=== PATIENT | female | born 1975 | race Caucasian/White ===

== ENCOUNTER 2020-09-19 23:56 | Inpatient (IN) | payer MEDICAID, SELFPAY ==
[2020-09-20 00:19] VITALS: BP 135/100; PULSE 76; RESP 16; TEMP 36.4; O2SAT 100; BMI 44.2
--- NOTE | 2020-09-20 00:42 | W.ED.PSYCH ---
HPI - Psych General: Chief Complaint: Psychiatric Symptoms Stated Complaint: SI Time Seen by Provider: 09/20/20 00:02 Source: patient Mode of arrival: ambulatory Limitations: no limitations History of Present Illness: HPI Narrative: 44-year-old female states that she has been having increasing depression. She and her boyfriend left her kids a month speak to her and she is now having suicidal thoughts. She states she has no specific plan but she is feeling very depressed and suicidal and voluntarily wants to get inpatient help. She denies any worsening improving factors. Associated symptoms: Reports depression and suicidal ideation Review of Systems Const: Denies: fever(s), chills, body aches or change in appetite Eyes: Denies: blurry vision or eye discomfort ENMT: Denies: throat pain or dental pain Card: Denies: chest pain Resp: Denies: dyspnea GI: Denies: abdominal pain, nausea, vomiting or diarrhea : Denies: dysuria Musc: Denies: neck pain or back pain Skin/Breast: Denies: rash Neuro: Denies: headache(s) Psych: Reports: depression and suicidal ideation Salomon/Lymph: Denies: easy bruising All/Imm: Denies: urticaria REPLACED BY [facility] Female Reproductive History: Date of last menstrual period: 09/20/20 Physical Exam Const: COMMON NORMALS: no acute distress, patient oriented x3 and healthy appearing HENMT: COMMON NORMALS: normocephalic and atraumatic HEAD & SCALP: normocephalic and atraumatic Eye: COMMON NORMALS: Equal, round and reactive pupils present and EOMs intact bilaterally PUPIL: Yes Equal, round and reactive pupils present Neck/C-Spine: COMMON NORMALS: full ROM and supple Chest: COMMONS NORMALS: normal inspection of the chest and normal palpation of entire chest wall Resp: COMMON NORMALS: normal respiratory effort, No retractions, No use of accessory muscles and clear to auscultation bilaterally AUSCULTATION: clear to auscultation bilaterally Cardio: COMMON NORMALS: regular rate, regular rhythm and No murmurs present (Cardio) RATE: regular rate RHYTHM: regular rhythm GI: COMMON NORMALS: Normal to inspection, nondistended, normoactive bowel sounds present, Soft to palpation, non-tender and no masses PALPATION: Yes Soft to palpation Extremity: COMMON NORMALS: normal to inspection and full ROM Neuro: COMMON NORMALS: patient oriented x3, moves all extremities and no focal motor deficits Psych: COMMON NORMALS: mental status grossly normal, Normal thought process present and cooperative THOUGHT PROCESS: Normal thought process present Skin: COMMON NORMALS: no rashes or lesions noted and no wounds GENERAL SKIN EXAM: no rashes or lesions noted Course Vital Signs: Vital signs: Vital Signs Temperature 97.6 F 09/20/20 00:19 Pulse Rate 76 09/20/20 00:19 Respiratory Rate 16 09/20/20 00:19 Blood Pressure 135/100 09/20/20 00:19 Pulse Oximetry 100 09/20/20 00:19 MDM - Psych MDM Narrative: Medical decision making narrative: Patient presents for suicidal ideation with no specific plan. Patient is medically cleared and she is voluntarily going to be admitted to the psychiatric unit. She has been stable while here and I spoke to Dr. Gerardo and will admit. Lab Data: Labs: Lab Results 09/20/20 09/20/20 Range/Units 00:49 00:49 WBC 11.4 H (4.0-10.0) 10^3/ uL RBC 3.45 L (4.1-5.3) 10^6/u L Hgb 8.4 L (11.5-15.3) g/dL Hct 28.5 L (37.0-47.0) % MCV 82.6 (81-99) fL MCH 24.3 L (28.0-34.0) pg MCHC 29.5 L (30.0-36.0) g/dL RDW 19.7 H (12.1-15.1) % Plt Count 469 H (130-400) 10^3/c mm MPV 9.9 (7.4-10.4) fL Neut % (Auto) 58.4 % Lymph % (Auto) 29.3 % [place] % (Auto) 7.8 % Eos % (Auto) 3.3 % Baso % (Auto) 0.4 % Neut # (Auto) 6.64 (1.8-7.7) 10^3/u L Lymph # (Auto) 3.3 (0.8-4.8) 10^3/u L [place] # (Auto) 0.9 (0.2-0.9) 10^3/u L Eos # (Auto) 0.4 (0.0-0.8) 10^3/u L Baso # (Auto) 0.1 (0.0-0.1) 10^3/u L Nucleated RBC % (a uto) 0 % Nucleated RBCs # 0.0 /100WBC Sodium 138 (136-145) mmol/L Potassium 4.3 (3.5-5.1) mmol/L Chloride 103 (98-107) mmol/L Carbon Dioxide 25 (22-29) mmol/L Anion Gap 14.3 (5-19) BUN 17 (6-20) mg/dL Creatinine 0.8 (0.5-0.9) mg/dL GFR Calculation 77.2 L (90-130) mL/min Glucose 90 (65-115) mg/dL Calculated Osmolal ity 287 (285-295) mOsm/k g Calcium 8.3 L (8.5-10.5) mg/dL Total Bilirubin 0.2 (0.15-1.2) mg/dL AST 10 (0-32) U/L ALT 6 (0-33) U/L Alkaline Phosphata se 144 H (35-105) IU/L Total Protein 7.0 (6.6-8.7) g/dL Albumin 3.6 (3.5-5.2) g/dL Globulin 3.4 (1.3-4.6) g/dL Salicylates < 0.3 L (3-10) mg/dL Acetaminophen < 5.0 L (10-30) ug/mL Ethyl Alcohol 10 (0-10) mg/dL Discharge Plan Discharge Patient Disposition: Admitted As Inpatient Admit Provider: Rao Gerardo Clinical Impression: Suicidal ideation Condition: Stable Coding Level of Care Code ED Aircraft Detail Draftsperson for g Fwd Exam Comprehensive
[2020-09-20 00:53] LABS: Basophils # 0.1 10^3/uL (0.0-0.1); Basophils % 0.4 %; Eosinophils # 0.4 10^3/uL (0.0-0.8); Eosinophils % 3.3 %; Hematocrit 28.5 % (37.0-47.0); Hemoglobin 8.4 g/dL (11.5-15.3); Lymphocytes # 3.3 10^3/uL (0.8-4.8); Lymphocytes % 29.3 %; Mean Corpuscular HGB Conc 29.5 g/dL (30.0-36.0); Mean Corpuscular Hemoglobin 24.3 pg (28.0-34.0); Mean Corpuscular Volume 82.6 fL (81-99); Mean Platelet Volume 9.9 fL (7.4-10.4); Monocytes # 0.9 10^3/uL (0.2-0.9); Monocytes % 7.8 %; Neutrophils # 6.64 10^3/uL (1.8-7.7); Neutrophils % 58.4 %; Nucleated Red Blood Cells % 0 %; Platelet Count 469 10^3/cmm (130-400); Red Blood Count 3.45 10^6/uL (4.1-5.3); Red Cell Distribution Width 19.7 % (12.1-15.1); White Blood Count 11.4 10^3/uL (4.0-10.0)
[2020-09-20 01:11] LABS: Alanine Aminotransferase 6 U/L (0-33); Albumin Level 3.6 g/dL (3.5-5.2); Alkaline Phosphatase 144 IU/L (35-105); Anion Gap 14.3 (5-19); Aspartate Amino Transferase 10 U/L (0-32); Blood Urea Nitrogen 17 mg/dL (6-20); Calcium 8.3 mg/dL (8.5-10.5); Carbon Dioxide 25 mmol/L (22-29); Chloride 103 mmol/L (98-107); Creatinine Clr Calc Pharmacy 106.5322; Globulin 3.4 g/dL (1.3-4.6); Glomerular Filtration Rate 77.2 mL/min (90-130); Glucose 90 mg/dL (65-115); Osmolality Calculated 287 mOsm/kg (285-295); Potassium 4.3 mmol/L (3.5-5.1); Sodium 138 mmol/L (136-145); Total Bilirubin 0.2 mg/dL (0.15-1.2)
[2020-09-20 01:16] LABS: Acetaminophen < 5.0 ug/mL (10-30); Alcohol Level 10 mg/dL (0-10); Salicylate < 0.3 mg/dL (3-10)
[2020-09-20 01:22] VITALS: BP 156/112; PULSE 78; RESP 16; TEMP 37.1; O2SAT 98
[2020-09-20 01:25] LABS: Amphetamines Screen Urine Positive (Negative); Barbiturates Screen Urine Negative (Negative); Benzodiazepines Screen Urine Negative (Negative); Cocaine Screen Urine Negative (Negative); Opiate Screen Urine Negative (Negative); PCP Screen Urine Negative (Negative); THC Screen Urine Negative (Negative)
--- NOTE | 2020-09-20 01:26 | PC.NURSE ---
PTS PURSE, MEDS AND TRASH BAG OF BELONGINGS PLACED IN LOCKER AND SENT WITH PT TO NPU
[2020-09-20 01:45] VITALS: BP 142/87; PULSE 78; RESP 16; O2SAT 97
[2020-09-20 06:00] VITALS: BP 148/98; PULSE 75; RESP 16; TEMP 37.1; O2SAT 99
[2020-09-20] MEDS: levothyroxine 50 mcg Tablet PO (06:24)
[2020-09-20] MEDS: pantoprazole DR 40 mg Tablet PO (09:51)
[2020-09-20] MEDS: ferrous sulfate EC 325 mg Tablet PO (09:51)
[2020-09-20] MEDS: lisinopril 20 mg Tablet PO (09:52)
[2020-09-20] MEDS: amlodipine 5 mg Tablet PO (09:52)
[2020-09-20] MEDS: fluticasone nasal spray 16gm Btl 2 SPRAY INTRANASAL (09:56)
[2020-09-20] MEDS: triamcinolone 0.1% cream 15 gm 1 APPLIC TOPICAL (09:57)
--- NOTE | 2020-09-20 11:54 | PM.NHP ---
Providers/Chief Complaint Admitting Physician: Rao Gerardo MD Chief Complaint: SI HPI NPU History of Present Illness Maureen Clifton is a 44 year old female with unclear past psychiatric history although reports prior mental health treatment and states that she has been off of medication for several weeks presented to the emergency department with acute stressor of her boyfriend kicking her out and her having worsening depressive symptoms and suicidal ideation. Patient continues to report ongoing low mood, decreased energy and interest in her usual activities, difficulty with appetite and sleep secondary to depressive symptoms with passive suicidal ideation with no active intent or plan. Of note, patient's urine drug screen positive for methamphetamine and she states that she had recently used within the past 3 days but states that she is only used this substance on 3 prior occasions. She denies any other substance use and denies any alcohol use. Patient had previous contact with mental health in June secondary to unstable living arrangement and was not reporting any acute psychiatric symptoms at that time. Patient reports prior diagnosis of bipolar disorder although is unable to cite any past hypomanic or manic episodes. Patient does report ongoing anxiety symptoms to include excessive worry and difficulty controlling her worrying as well as occasional panic symptoms. She denies any past or recent psychotic symptoms. Patient currently reports being homeless and states that she is unable to support herself and states that her brother typically helps her financially. Review of Systems General: Reports: 10 or more systems reviewed and unremarkable except in HPI and below Meds NPU Home Medications Medication Instructions Recorded Confirmed Last Taken Type amlodipine-benazepril 5 - 20 cap PO DAILY 09/20/20 09/20/20 09/10/20 09:00 History ferrous sulfate 325 mg PO DAILY 09/20/20 09/20/20 09/04/20 09:00 History fluticasone propionate 2 spray INTRANASAL DAILY 09/20/20 09/20/20 09/19/20 09:00 History hydroxyzine pamoate 25 mg PO BEDTIME PRN MDD 50mg 09/20/20 09/20/20 09/10/20 21:00 History ibuprofen [Motrin] 800 mg PO Q6H PRN 09/20/20 09/20/20 09/10/20 09:00 History levothyroxine 50 mcg PO DAILY 09/20/20 09/20/20 09/10/20 06:00 History omeprazole 20 mg PO DAILY 07/04/1209/20/20 09/19/20 09:00 History ropinirole 2 mg PO BEDTIME 09/20/20 09/20/20 09/10/20 History triamcinolone acetonide 1 applic TOPICAL BID 09/20/20 09/20/20 Unknown History Allergies Allergy/AdvReac Type Severity Reaction Status Date / Time Penicillins Allergy Unknown Verified 09/20/20 00:23 [facility] NPU Other Psychiatric History: Other Psychiatric History: Reports previous psychiatric hospitalization several years ago States that her family practice physician provides her mental health medications although she is currently not taking any medications Reports past overdose attempt at age 17 Mental Status Exam MSE Comments: Obese, poorly groomed, lying in bed, poor to fair eye contact Psychomotor activity is decreased, no agitation Speech is normal rate, low volume, spontaneous, fair articulation, not pressured I feel tired, constricted affect, not labile Tired but alert, oriented to person, place, time, situation Memory and concentration is fair secondary to poor effort per interview Intellectual functioning appears to be below average to average at best based on vocabulary, interview Thought process, linear but brief, no flight of ideas, no looseness of associations Thought content, no delusions, no hallucinations, currently with passive suicidal thoughts with no active intent or plan, no homicidal ideation Insight and judgment appear to be fair Vitals/I&O/Wt Last Vital Signs Temp 98.8 F 09/20/20 06:00 Pulse 75 09/20/20 06:00 Resp 16 09/20/20 06:00 BP 148/98 09/20/20 06:00 Pulse Ox 99 09/20/20 06:00 09/19/20 09/20/20 09/20/20 22:59 06:59 14:59 Intake Total 0 / 0 Balance 0 / 0 Weight last 48 hrs Weight 113.398 kg Data NPU : 09/20/20 00:49 09/20/20 00:49 A&P Assessment and plan (1) Suicidal ideation: Status: Acute (2) Depressive disorder: Status: Acute (3) Anxiety disorder: Status: Acute (4) Methamphetamine abuse: Status: Acute Additional A&P Information Patient presenting with methamphetamine intoxication, suicidal ideation although currently reporting passive suicidal ideation with ongoing depressive and anxiety symptoms reporting that she has been off medication for several weeks and is homeless. VOLUNTARY ADMIT to inpatient psychiatry START citalopram 10 mg daily targeting depressive and anxiety symptoms Encouraged patient to participate in unit activities to include group sessions, unit milieu Coordinate with social insurance adviser for post discharge mental health care follow-up Involuntary Hold Information 96 Hour Hold: 96 Hour Involuntary Admission: No Attestations NPU Medical Necessity Statement*: Psychiatric hospitalization indicated for medication stabilization, coordination for safe discharge Anticipate hospital stay to exceed 2 midnights Time Spent in Patient Care: Greater than 35 minutes (>than 50% of time spent in counselling and/or direct pt care on unit). Coding Level of Care Code Acute Leverman for g Fwd Diagnoses Suicidal ideation R45.851 Depressive disorder F32.9 Anxiety disorder F41.9 Methamphetamine abuse F15.10
[2020-09-20] MEDS: citalopram 20 mg Tablet PO (12:50)
[2020-09-20 14:00] VITALS: BP 140/84; PULSE 75; RESP 18; TEMP 36.1; O2SAT 94
--- NOTE | 2020-09-20 15:51 | PC.NURSE ---
pt refused meds at med pass, pt was being lazy and didn't want to be bothered with rolling over for meds at that time. Approached the room in 15 min's and was able to administer meds at that time.
[2020-09-20] MEDS: ropinirole 1 mg Tablet 2 MG PO (20:20)
[2020-09-20 22:00] VITALS: BP 154/105; PULSE 82; RESP 17; TEMP 37.1; O2SAT 97
--- NOTE | 2020-09-21 03:24 | PC.NURSE ---
PM Assessment pt denies si/hi, denies ah/vh, denies pain, pt was laying in her bed, lights out, eyes were teary. Pt has self-isolated, she is not in a pleasant mood, she does not want to talk to staff. She is not rude, she is not open to interaction. Pt has slept most of the evening.
[2020-09-21] MEDS: ibuprofen 800 mg tablet PO (04:56)
[2020-09-21] MEDS: hyDROXYzine 25 mg Capsule 50 MG PO ×2 (04:56→20:17)
[2020-09-21 06:00] VITALS: RESP 17
--- NOTE | 2020-09-21 06:05 | PC.NURSE ---
Patient refused vitals. respirations were taken.
--- NOTE | 2020-09-21 06:39 | PC.NURSE ---
refused levothyroxine this morning
[2020-09-21] MEDS: fluticasone nasal spray 16gm Btl 2 SPRAY INTRANASAL (09:41)
[2020-09-21] MEDS: citalopram 20 mg Tablet PO (09:41)
[2020-09-21] MEDS: pantoprazole DR 40 mg Tablet PO (09:42)
[2020-09-21] MEDS: lisinopril 20 mg Tablet PO (09:42)
[2020-09-21] MEDS: amlodipine 5 mg Tablet PO (09:42)
[2020-09-21] MEDS: ferrous sulfate EC 325 mg Tablet PO (09:42)
--- NOTE | 2020-09-21 12:32 | P.PN_ITS ---
Subjective NPU Subjective: Interval history: Continues to report some depressive symptoms mostly lying in bed today Reports intermittent anxiety symptoms about ongoing stressors Reports that her appetite is been fair States that she has mostly been sleeping and denies any sleep disturbances at ni ght Reports being compliant with medication and denies any medication side effects Denies any interval suicidal ideation Mental Status Exam MSE Comments: Lying in bed, wearing hospital scrubs, poor eye contact, lying on her side facing away from the interviewer Psychomotor activity is decreased, no agitation Speech is low volume, normal rate, spontaneous, fair articulation, not pressured I feel depressed, constricted affect, not labile Alert, oriented to person, place, time, situation Memory and concentration is fair secondary to poor effort per interview Thought process, linear but brief, no flight of ideas, no looseness of associations Thought content, no delusions, no hallucinations, currently with passive suicidal thoughts with no active intent or plan, no homicidal ideation Insight and judgment appear to be fair Vitals/I&O/Wt Last Vital Signs Temp 98.8 F 09/20/20 22:00 Pulse 82 09/20/20 22:00 Resp 17 09/21/20 06:00 BP 154/105 09/20/20 22:00 Pulse Ox 97 09/20/20 22:00 Weight last 48 hrs Weight 113.398 kg Data NPU : 09/20/20 00:49 09/20/20 00:49 A&P Assessment and plan (1) Suicidal ideation: Status: Acute (2) Depressive disorder: Status: Acute (3) Anxiety disorder: Status: Acute (4) Methamphetamine abuse: Status: Acute Additional A&P Information Ongoing depressive and anxiety symptoms, tolerating medication CONTINUE current medication, continue to monitor Involuntary Hold Information 96 Hour Hold: 96 Hour Involuntary Admission: No Attestations NPU Medical Necessity Statement*: Continues to require psychiatric hospitalization for medication stabilization Coding Level of Care Code Acute Wire Preparation Machine Tender for [facility] Fwd Diagnoses Suicidal ideation R45.851 Depressive disorder F32.9 Anxiety disorder F41.9 Methamphetamine abuse F15.10
[2020-09-21 13:45] VITALS: BP 137/90; PULSE 75; RESP 18; TEMP 36.2; O2SAT 100
[2020-09-21] MEDS: fixodent 39 gm Tube 1 APPLIC DENTAL (16:48)
[2020-09-21 19:54] VITALS: BP 164/84; PULSE 76; RESP 16; TEMP 36.8; O2SAT 97
[2020-09-21] MEDS: ropinirole 1 mg Tablet 2 MG PO (20:16)
[2020-09-22 06:00] VITALS: BP 157/89; PULSE 74; RESP 16; TEMP 36.4; O2SAT 94
[2020-09-22] MEDS: amlodipine 5 mg Tablet PO (08:33)
[2020-09-22] MEDS: ferrous sulfate EC 325 mg Tablet PO (08:33)
[2020-09-22] MEDS: pantoprazole DR 40 mg Tablet PO (08:33)
[2020-09-22] MEDS: citalopram 20 mg Tablet PO (08:34)
[2020-09-22] MEDS: lisinopril 20 mg Tablet PO (08:34)
--- NOTE | 2020-09-22 10:24 | PM.NPN ---
Subjective NPU Subjective: Interval history: Reports feeling much better today, denies any interval mood symptoms, denies any depressed symptoms, denies any suicidal ideation Patient states that she plans on going to [place] with her brother once she leaves the hospital Reports being compliant with medication and denies any medication side effects Reports that her appetite is improved and she has been getting up for meals Reports sleeping well Mental Status Exam MSE Comments: Initially lying but eventually sits up for interview, polite, interactive, good eye contact, disheveled, wearing hospital scrubs Psychomotor activity is neither increased nor decreased, no agitation Speech is normal volume, normal rate, spontaneous, clear articulation, not pressured I feel better, full range of affect, not labile Alert, oriented to person, place, time, situation Memory and concentration appears to be intact per interview Thought process, linear, no flight of ideas, no looseness of associations Thought content, no delusions, no hallucinations, no suicidal or homicidal ideation Insight and judgment appear to be fair Vitals/I&O/Wt Last Vital Signs Temp 97.5 F L 09/22/20 06:00 Pulse 74 09/22/20 06:00 Resp 16 09/22/20 06:00 BP 157/89 09/22/20 06:00 Pulse Ox 94 09/22/20 06:00 Data NPU : 09/20/20 00:49 09/20/20 00:49 A&P Assessment and plan (1) Suicidal ideation: Status: Acute (2) Depressive disorder: Status: Acute (3) Anxiety disorder: Status: Acute (4) Methamphetamine abuse: Status: Acute Additional A&P Information Reports significant improvement, tolerating medication, increased interaction CONTINUE current medication, continue to monitor Involuntary Hold Information 96 Hour Hold: 96 Hour Involuntary Admission: No Attestations NPU Medical Necessity Statement*: Continues to require psychiatric hospitalization for medication stabilization, coordination for safe discharge Coding Level of Care Code Acute Pipe And Tank Fabricator for g Fwd Diagnoses Suicidal ideation R45.851 Depressive disorder F32.9 Anxiety disorder F41.9 Methamphetamine abuse F15.10
[2020-09-22] MEDS: nicotine 21 mg Patch 1 PATCH TRANSDERMA (11:58)
[2020-09-22 13:47] VITALS: BP 159/89; PULSE 80; RESP 15; TEMP 36.7; O2SAT 97
[2020-09-22] MEDS: ropinirole 1 mg Tablet 2 MG PO (20:36)
[2020-09-22] MEDS: triamcinolone 0.1% cream 15 gm 1 APPLIC TOPICAL (20:36)
--- NOTE | 2020-09-22 21:00 | PC.NURSE ---
Nicotine Patch removed
[2020-09-22] MEDS: hyDROXYzine 25 mg Capsule 50 MG PO (21:39)
[2020-09-22 22:00] VITALS: BP 142/79; PULSE 71; RESP 16; TEMP 36.5; O2SAT 97
--- NOTE | 2020-09-22 22:40 | PC.NURSE ---
Misleading info given to physician and staff. Pt wanted to leave the unit and told nursing staff that she had a friend Marcus that lived here in [place] that would be willing to come and get her tonight. . Physician notified of pt request. Pt called several people last night, looking for a place to stay. She had informed staff that her brother in [place] was coming to see her and take her back with him to live and that he had been providing money to her to help her while she was living her. This evening Nursing staff received a call from the patients daughter, Daiana, . She informed the nursing staff that this patient does NOT have a brother at all. She said the pt's sister, Lavonne Mccormick, lives in a trailer here in [place]. She went on to say, she would have let her mother stay in her home if she was clean from the street drugs she is using. Digna said she has a small child at home with second child on the way. I can not have my mother using drugs in my home with my children. Digna said, this is another man she has never even met in person, that she met online, and she is going to keep on until she is killed.
--- NOTE | 2020-09-23 01:11 | PC.NURSE ---
The patient was given Vistaril 50 mg po for complaint of anxiety at 2138. Currently appears to be sleeping.
[2020-09-23 06:00] VITALS: BP 102/68; PULSE 97; RESP 18; TEMP 37.4; O2SAT 97; BMI 44.2
[2020-09-23] MEDS: ibuprofen 800 mg tablet PO (06:29)
[2020-09-23] MEDS: levothyroxine 50 mcg Tablet PO (06:30)
[2020-09-23] MEDS: ferrous sulfate EC 325 mg Tablet PO (08:01)
[2020-09-23] MEDS: amlodipine 5 mg Tablet PO (08:01)
[2020-09-23] MEDS: pantoprazole DR 40 mg Tablet PO (08:01)
[2020-09-23] MEDS: citalopram 20 mg Tablet PO (08:01)
[2020-09-23] MEDS: lisinopril 20 mg Tablet PO (08:01)
--- NOTE | 2020-09-23 11:16 | P.DS_ITS ---
Diagnoses at Discharge Discharge Diagnosis (1) Suicidal ideation: Status: Acute (2) Depressive disorder: Status: Acute (3) Anxiety disorder: Status: Acute (4) Methamphetamine abuse: Status: Acute Reason for Visit Reason for Visit: SI Hospital Course Hospital Course 44 year old female with unclear past psychiatric history although reports prior mental health treatment and states that she has been off of medication for several weeks presented to the emergency department with acute stressor of her boyfriend kicking her out and her having worsening depressive symptoms and suicidal ideation. Patient was reporting ongoing low mood, decreased energy and interest in her usual activities, difficulty with appetite and sleep secondary to depressive symptoms with passive suicidal ideation with no active intent or plan at the time of initial evaluation. Her drug screen was positive for methamphetamine and she stated that she had recently used within the past 3 days but states that she is only used this substance on 3 prior occasions. She denies any other substance use and denies any alcohol use. Patient was started on citalopram 10 mg which she tolerated well with no reports of any medication side effects and some improvement of her depressive and anxiety symptoms. Patient participate in unit milieu but mostly stayed in her room with no reports of behavioral disturbances but had become somewhat angry when she realized that she was going to have to present a plan for where she was going to discharge. She subsequently calm down after verbal redirection and was able to provide a plan for her safe discharge. Patient was not suicidal and did not endorse any psychiatric symptoms at the time of discharge and did not appear to pose an imminent threat of harm to self or others. Low to moderate risk of harm to self given no current suicidal ideation and no current endorsement of any psychiatric symptoms although her risk will continue be elevated if she continues to abuse substances and alcohol leading to disinhibited, unexpected, impulsive behavior. Risk mitigation included psychiatric hospitalization, medication stabilization, recommendation to abstain from the use of substances and alcohol as well as the need for post discharge substance counseling/treatment in addition to medication management mental health follow-up. She was able to communicate her understanding of the need to abstain from the use of substances and alcohol as well as the need for compliance with her medication, medication management and substance counseling/treatment post discharge in order to further mitigate her risk of harm to self and others. Involuntary Hold Information 96 Hour Hold: 96 Hour Involuntary Admission: No Mental Status Exam MSE Comments: Sitting up on her bed, calm, cooperative, tired appearing, good eye contact, disheveled, wearing hospital scrubs Psychomotor activity is neither increased nor decreased, no agitation Speech is normal volume, normal rate, spontaneous, clear articulation, not pressured I feel okay, full range of affect, not labile Alert, oriented to person, place, time, situation Memory and concentration appears to be intact per interview Thought process, linear, no flight of ideas, no looseness of associations Thought content, no delusions, no hallucinations, no suicidal or homicidal ideation Insight and judgment appear to be fair Discharge Data Vitals: Last Vital Signs Temp 99.3 F 09/23/20 06:00 Pulse 97 09/23/20 06:00 Resp 18 09/23/20 06:00 BP 102/68 09/23/20 06:00 Pulse Ox 97 09/23/20 06:00 Discharge Plan Discharge Patient Disposition: Home Condition: Stable Prescriptions: New citalopram 20 mg Tablet 20 mg PO DAILY Qty: 30 RF: 0 Continued amlodipine-benazepril 5-20 mg capsule 5 - 20 cap PO DAILY RF: 0 Motrin 800 mg Tablet 800 mg PO Q6H PRN (Reason: Pain (Scale Score 4-6)) RF: 0 triamcinolone acetonide 0.1 % cream 1 applic TOPICAL BID RF: 0 levothyroxine 50 mcg tablet 50 mcg PO DAILY RF: 0 ropinirole 2 mg tablet 2 mg PO BEDTIME RF: 0 ferrous sulfate 325 mg (65 mg iron) tablet 325 mg PO DAILY RF: 0 omeprazole 20 mg capsule,delayed release(DR/EC) 20 mg PO DAILY RF: 0 fluticasone propionate 50 mcg/actuation spray,suspension 2 spray INTRANASAL DAILY RF: 0 hydroxyzine pamoate 25 mg capsule 25 mg PO BEDTIME MDD 50mg PRN (Reason: Insomnia) RF: 0 Discharge Orders: Discharge Order (Routine); Ordered 09/23/20 Ordered By: Maci Preston Discharge Diet: Regular Discharge Activity: Resume usual activity Patient Instructions: Opioid Safety Discharge Attestations NPU Time Spent in Discharge Care*: greater than 30 min Status at Discharge: Cognitive status at discharge: cognitively intact , Behavioral status at discharge: cooperative , Functional status at discharge: independent ambulation Overall status at discharge: patient is back to baseline Coding Level of Care Code Acute Chg FW DC note Diagnoses Suicidal ideation R45.851 Depressive disorder F32.9 Anxiety disorder F41.9 Methamphetamine abuse F15.10
[2020-09-23 11:22] VITALS: BP 102/68; PULSE 97; RESP 18; TEMP 37.4; O2SAT 97
== END 2020-09-23 11:26 | disposition home or self-care (01) | DRG 881 ==
LOC: ER 09-20 00:08 → NP 09-20 01:22
PROVIDERS: Admitting Provider Psychiatry & Neurology Psychiatry; Emergency Provider Emergency Medicine; Visit Provider Psychiatry & Neurology Psychiatry
DX: F32.9 Major depressive disorder, single episode, unspecified (principal); R45.851 Suicidal ideations; Z68.41 Body mass index [BMI] 40.0-44.9, adult; Z91.14 Patient's other noncompliance with medication regimen; E66.9 Obesity, unspecified; F41.9 Anxiety disorder, unspecified; F15.129 Other stimulant abuse with intoxication, unspecified
CPT/HCPCS: 80053; 80306; 80307; 85025; 99285

== ENCOUNTER 2020-10-27 13:19 | Emergency (ER) | payer MEDICAID, SELFPAY ==
[2020-10-27 13:30] VITALS: BP 125/82; PULSE 72; RESP 16; TEMP 36.6; O2SAT 100; BMI 44.2
[2020-10-27 13:45] VITALS: BP 128/62; PULSE 67; RESP 16; TEMP 36.9; O2SAT 98
--- NOTE | 2020-10-27 13:45 | XRR_ITS ---
PROCEDURE INFORMATION: Exam: XR Chest Exam date and time: 10/27/2020 1:45 PM Age: 44 years old Clinical indication: Pain; Chest pressure and left-sided; Additional info: Chest pain TECHNIQUE: Imaging protocol: XR of the chest. Views: 1 view. COMPARISON: No relevant prior studies available. FINDINGS: Lungs: Unremarkable. No consolidation. Pleural spaces: Unremarkable. No pleural effusion. No pneumothorax. Heart/Mediastinum: Unremarkable. No cardiomegaly. Bones/joints: Unremarkable. XR/XR chest 1V portable [id number] IMPRESSION: No acute findings.
--- NOTE | 2020-10-27 13:45 | ECG_ITS ---
[facility] Test Date: 2020-10-27 Pat Name: Maureen Clifton Department: Room: Gender: Female Implementation Services Analyst: : 1975 Requested By: Cash Meyers Order Number: [id number] Pako MD: Alex Dozier M.D. Measurements Intervals [place] Rate: 69 P: 27 [place]: 170 QRS: 1 QRSD: 93 T: 70 QT: 414 QTc: 446 Interpretive Statements SINUS RHYTHM NONSPECIFIC T-WAVE ABNORMALITY No previous ECG available for comparison Electronically Signed On 10-28-2020 12:18:20 CDT by Alex Dozier M.D. [email or web address] ([email or web address] by [id number] [email or web address]
--- NOTE | 2020-10-27 13:55 | ED_ITS ---
HPI - Chest Pain General: Chief Complaint: Chest Pain Stated Complaint: L. SIDE CHEST & L. HAND NUMBNESS Time Seen by Provider: 10/27/20 13:42 History of Present Illness: HPI narrative: 44-year-old female presents to the emergency room via law enforcement from a local [facility]. She is stating she has had chest pain since earlier this morning. She also states she has a history of TX with a previous stent placed somewhere in the range of 4 to 6 years ago while she left someone [place]. She is on antihypertensive but no other medications to getting a history of coronary artery disease. The only medication she is on is amlodipine Benzapril she is not on any platelet inhibitors aspirin or statin. She denies being diabetic she does smoke MD complaint: chest pain Pertinent past history: prior TX (per pt report she had a stent place 4 yrs ago in [place]) Onset (ago): hour(s) Timing of current episode: constant and still present Onset: during rest Pain location: left chest Pain radiation: none Severity: mild Quality: tightness Relieving factors: nothing Exacerbating factors: nothing Associated symptoms: Reports diaphoresis and dyspnea; Deny abdominal pain, fever(s), leg edema, nausea, palpitations, sense of impending doom, syncope or vomiting Treatment prior to arrival: none Review of Systems Const: Reports: diaphoresis; Denies: fever(s) Card: Denies: palpitations or syncope Resp: Reports: dyspnea GI: Denies: abdominal pain, nausea or vomiting [facility] ED PFSH: Medical History Psychiatric care Female Reproductive History: Date of last menstrual period: 09/20/20 Physical Exam Const: COMMON NORMALS: no acute distress GENERAL APPEARANCE: cooperative and comfortable ORIENTATION/CONSCIOUSNESS: Yes awake, Yes oriented to person, Yes oriented to place and Yes oriented to time HENMT: COMMON NORMALS: normocephalic, atraumatic and hearing grossly normal bilaterally HEAD & SCALP: normocephalic and atraumatic Neck/C-Spine: COMMON NORMALS: no JVD Resp: COMMON NORMALS: normal respiratory effort, No retractions, No use of accessory muscles and clear to auscultation bilaterally AUSCULTATION: clear to auscultation bilaterally Cardio: COMMON NORMALS: no JVD, regular rate, regular rhythm and No murmurs present (Cardio) RATE: regular rate RHYTHM: regular rhythm GI: COMMON NORMALS: Soft to palpation and No hepatosplenomegaly present AUSCULTATION: Yes normoactive bowel sounds PALPATION: Yes Soft to palpation, No Tenderness to palpation present (GI), No Guarding due to palpation present (GI) and Yes No hepatosplenomegaly present Extremity: COMMON NORMALS: normal to inspection, capillary refill normal, no clubbing, cyanosis or edema, no calf tenderness and no pedal edema Neuro: SENSORIUM/ORIENTATION: Yes oriented to person, Yes oriented to place and Yes oriented to time Skin: COMMON NORMALS: no rashes or lesions noted GENERAL SKIN EXAM: no rashes or lesions noted Course Vital Signs: Vital signs: Vital Signs Temperature 98 F 10/27/20 13:30 Pulse Rate 72 10/27/20 13:30 Respiratory Rate 16 10/27/20 13:30 Blood Pressure 125/82 10/27/20 13:30 Pulse Oximetry 100 10/27/20 13:30 MDM - Chest Pain MDM Narrative: Medical decision making narrative: Reviewed labs and imaging and EKGs on the chart. Troponin negative. Discharged in the custody of law enforcement. Follow-up with primary care. Return if is worsening problems. Lab Data: Labs: Lab Results 10/27/20 10/27/20 10/27/20 Range/Units 14:20 14:20 14:20 WBC 8.4 (4.0-10.0) 10^3/ uL RBC 3.88 L (4.1-5.3) 10^6/u L Hgb 9.1 L (11.5-15.3) g/dL Hct 31.5 L (37.0-47.0) % MCV 81.2 (81-99) fL MCH 23.5 L (28.0-34.0) pg MCHC 28.9 L (30.0-36.0) g/dL RDW 17.5 H (12.1-15.1) % Plt Count 406 H (130-400) 10^3/c mm MPV 11.0 H (7.4-10.4) fL Neut % (Auto) 64.7 % Lymph % (Auto) 23.9 % Camas % (Auto) 9.2 % Eos % (Auto) 1.6 % Baso % (Auto) 0.4 % Neut # (Auto) 5.42 (1.8-7.7) 10^3/u L Lymph # (Auto) 2.0 (0.8-4.8) 10^3/u L Camas # (Auto) 0.8 (0.2-0.9) 10^3/u L Eos # (Auto) 0.1 (0.0-0.8) 10^3/u L Baso # (Auto) 0.0 (0.0-0.1) 10^3/u L Nucleated RBC % (a uto) 0 % Nucleated RBCs # 0.0 /100WBC Sodium 137 (136-145) mmol/L Potassium 4.2 (3.5-5.1) mmol/L Chloride 104 (98-107) mmol/L Carbon Dioxide 23 (22-29) mmol/L Anion Gap 14.2 (5-19) BUN 8 (6-20) mg/dL Creatinine 0.8 (0.5-0.9) mg/dL GFR Calculation 77.2 L (90-130) mL/min Glucose 98 (65-115) mg/dL Calculated Osmolal ity 282 L (285-295) mOsm/k g Calcium 8.9 (8.5-10.5) mg/dL Total Bilirubin 0.2 (0.15-1.2) mg/dL AST 15 (0-32) U/L ALT 11 (0-33) U/L Alkaline Phosphata se 133 H (35-105) IU/L Creatine Kinase 32 (26-192) U/L Troponin T Baselin e 6 (0-10) ng/L Troponin T 120 Min ludwig (0-10) ng/L Delta Troponin T (0-10) ABS# Total Protein 6.8 (6.6-8.7) g/dL Albumin 3.9 (3.5-5.2) g/dL Globulin 2.9 (1.3-4.6) g/dL Lipase 14 (13-60) U/L /10/10 Range/Units 16:32 WBC (4.0-10.0) 10^3/ uL RBC (4.1-5.3) 10^6/u L Hgb (11.5-15.3) g/dL Hct (37.0-47.0) % MCV (81-99) fL MCH (28.0-34.0) pg MCHC (30.0-36.0) g/dL RDW (12.1-15.1) % Plt Count (130-400) 10^3/c mm MPV (7.4-10.4) fL Neut % (Auto) % Lymph % (Auto) % Camas % (Auto) % Eos % (Auto) % Baso % (Auto) % Neut # (Auto) (1.8-7.7) 10^3/u L Lymph # (Auto) (0.8-4.8) 10^3/u L Camas # (Auto) (0.2-0.9) 10^3/u L Eos # (Auto) (0.0-0.8) 10^3/u L Baso # (Auto) (0.0-0.1) 10^3/u L Nucleated RBC % (a uto) % Nucleated RBCs # /100WBC Sodium (136-145) mmol/L Potassium (3.5-5.1) mmol/L Chloride (98-107) mmol/L Carbon Dioxide (22-29) mmol/L Anion Gap (5-19) BUN (6-20) mg/dL Creatinine (0.5-0.9) mg/dL GFR Calculation (90-130) mL/min Glucose (65-115) mg/dL Calculated Osmolal ity (285-295) mOsm/k g Calcium (8.5-10.5) mg/dL Total Bilirubin (0.15-1.2) mg/dL AST (0-32) U/L ALT (0-33) U/L Alkaline Phosphata se (35-105) IU/L Creatine Kinase (26-192) U/L Troponin T Baselin e (0-10) ng/L Troponin T 120 Min ludwig 6.00 (0-10) ng/L Delta Troponin T 0 (0-10) ABS# Total Protein (6.6-8.7) g/dL Albumin (3.5-5.2) g/dL Globulin (1.3-4.6) g/dL Lipase (13-60) U/L Discharge Plan Discharge Patient Disposition: Home Clinical Impression: Atypical chest pain Condition: Stable Prescriptions: No Action amlodipine-benazepril 5-20 mg capsule 5 - 20 cap PO DAILY RF: 0 ibuprofen 800 mg Tablet 800 mg PO Q6H PRN (Reason: Pain (Scale Score 4-6)) RF: 0 triamcinolone acetonide 0.1 % cream 1 applic TOPICAL BID RF: 0 levothyroxine 50 mcg tablet 50 mcg PO DAILY RF: 0 ropinirole 2 mg tablet 2 mg PO BEDTIME RF: 0 ferrous sulfate 325 mg (65 mg iron) tablet 325 mg PO DAILY RF: 0 omeprazole 20 mg capsule,delayed release(DR/EC) 20 mg PO DAILY RF: 0 fluticasone propionate 50 mcg/actuation spray,suspension 2 spray INTRANASAL DAILY RF: 0 hydroxyzine pamoate 25 mg capsule 25 mg PO BEDTIME MDD 50mg PRN (Reason: Insomnia) RF: 0 citalopram 20 mg Tablet 20 mg PO DAILY Qty: 30 RF: 0 Discharge Orders: Discharge ED (Routine); Ordered 10/27/20 Ordered By: Cash Reeves Discharge Diet: Usual diet Discharge Activity: Resume usual activity Patient Instructions: Opioid Safety Activity Restrictions/Additional Instructions: Follow-up with your primary care doctor when you are able. Return if there are further problems. Coding Level of Care Code ED Transformation Lead for George Fwd Exam Comprehensive
[2020-10-27] MEDS: aspirin 81 mg Chew Tablet 324 MG PO (14:50)
[2020-10-27 15:21] LABS: Basophils % 0.4 %; Eosinophils # 0.1 10^3/uL (0.0-0.8); Eosinophils % 1.6 %; Hematocrit 31.5 % (37.0-47.0); Hemoglobin 9.1 g/dL (11.5-15.3); Lymphocytes % 23.9 %; Mean Corpuscular HGB Conc 28.9 g/dL (30.0-36.0); Mean Corpuscular Hemoglobin 23.5 pg (28.0-34.0); Mean Corpuscular Volume 81.2 fL (81-99); Monocytes # 0.8 10^3/uL (0.2-0.9); Monocytes % 9.2 %; Neutrophils # 5.42 10^3/uL (1.8-7.7); Neutrophils % 64.7 %; Nucleated Red Blood Cells % 0 %; Platelet Count 406 10^3/cmm (130-400); Red Blood Count 3.88 10^6/uL (4.1-5.3); Red Cell Distribution Width 17.5 % (12.1-15.1); White Blood Count 8.4 10^3/uL (4.0-10.0)
[2020-10-27 15:40] LABS: Troponin(5th) Baseline 6 ng/L (0-10)
[2020-10-27 15:44] LABS: Alanine Aminotransferase 11 U/L (0-33); Albumin Level 3.9 g/dL (3.5-5.2); Alkaline Phosphatase 133 IU/L (35-105); Anion Gap 14.2 (5-19); Aspartate Amino Transferase 15 U/L (0-32); Blood Urea Nitrogen 8 mg/dL (6-20); Calcium 8.9 mg/dL (8.5-10.5); Carbon Dioxide 23 mmol/L (22-29); Chloride 104 mmol/L (98-107); Creatine Phosphokinase 32 U/L (26-192); Creatinine Clr Calc Pharmacy 106.5322; Globulin 2.9 g/dL (1.3-4.6); Glomerular Filtration Rate 77.2 mL/min (90-130); Glucose 98 mg/dL (65-115); Lipase 14 U/L (13-60); Osmolality Calculated 282 mOsm/kg (285-295); Potassium 4.2 mmol/L (3.5-5.1); Sodium 137 mmol/L (136-145); Total Bilirubin 0.2 mg/dL (0.15-1.2); Total Protein 6.8 g/dL (6.6-8.7)
--- NOTE | 2020-10-27 15:45 | ECG_ITS ---
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 Measurements Intervals Bessie Rate: 50 P: 47 SD: 172 QRS: 12 QRSD: 93 T: 123 QT: 465 QTc: 426 Interpretive Statements SINUS BRADYCARDIA WITH SINUS ARRHYTHMIA MODERATE T-WAVE ABNORMALITY, CONSIDER LATERAL ISCHEMIA [-0.1+ mV T WAVE IN I/aVL/V5/V6] Compared to ECG 10/27/2020 13:38:29 Possible ischemia now present Sinus rhythm no longer present T-wave abnormality still present Electronically Signed On 10-28-2020 12:24:11 CDT by Alex Dozier M.D. [id number]
[2020-10-27 17:24] LABS: Troponin 5 2HR Delta 0 ABS# (0-10)
[2020-10-27 18:22] VITALS: BP 128/86; PULSE 68; RESP 18; O2SAT 100
== END 2020-10-27 19:07 | disposition home or self-care (01) ==
PROVIDERS: Emergency Provider Family Medicine
DX: R07.89 Other chest pain (principal)
CPT/HCPCS: 71045; 80053; 82550; 83690; 84484; 85025; 93005; 99283

== ENCOUNTER 2021-08-15 13:04 | Emergency (ER) | payer MEDICAID, SELFPAY ==
[2021-08-15 13:26] VITALS: BP 189/106; PULSE 68; RESP 18; TEMP 36.3; O2SAT 100
--- NOTE | 2021-08-15 14:11 | W.ED.ALLEREA ---
HPI - Allergic Reaction General: Chief complaint: Allergic Reaction Stated complaint: Allergic Rx, Iching All over Time Seen by Provider: 08/15/21 13:59 History of Present Illness: HPI narrative: Patient is a 45-year-old female comes to the ED with allergic reaction. Patient is currently staying at a friend's house and they have a cat and a dog. She has allergies to cats and dogs and since she has been living there she developed itchy watery eyes, and itchy rash on extremities and trunk. Last night she started having some wheezing. She took some Benadryl today and it helped a little with the pruritic rash. Her symptoms improved greatly when she got out of the house and away from the dog and cat. Here in the ED she does not have any wheezing. Associated symptoms: Deny abdominal pain, nausea or vomiting Review of Systems Const: Denies: fever(s), chills or fatigue Eyes: Reports: eye discomfort (Itching eyes); Denies: change in vision ENMT: Denies: throat pain, odynophagia, nasal discharge or nasal congestion Card: Denies: chest pain, palpitations, edema, swelling of feet/ankles, dyspnea on exertion or orthopnea Resp: Denies: dyspnea, productive cough or non-productive cough GI: Denies: abdominal pain, nausea, vomiting, diarrhea, constipation or hematochezia : Denies: flank pain, dysuria or hematuria Musc: Denies: neck pain, back pain or extremity swelling Skin/Breast: Reports: rash (Pruritic rash); Denies: new lesions Neuro: Denies: headache(s), numbness in extremities or weakness in extremities [facility] ED PFSH: Medical History No pertinent family history Psychiatric care Surgical History No pertinent past surgical history Female Reproductive History: Date of last menstrual period: 09/20/20 Physical Exam Const: COMMON NORMALS: no acute distress, patient oriented x3 and alert GENERAL APPEARANCE: cooperative and comfortable HENMT: COMMON NORMALS: normocephalic HEAD & SCALP: normocephalic MOUTH: Normal oral and palatal mucosa present THROAT: posterior oropharynx normal and uvula midline Neck/C-Spine: COMMON NORMALS: supple GENERAL: Yes normal visual inspection Resp: COMMON NORMALS: normal respiratory effort, No retractions, No use of accessory muscles and clear to auscultation bilaterally AUSCULTATION: clear to auscultation bilaterally Cardio: COMMON NORMALS: regular rate, regular rhythm, S1 normal heart sound present, S2 normal heart sound present, No gallops present (Cardio), No clicks present (Cardio), No murmurs present (Cardio) and Peripheral pulses 2+ throughout RATE: regular rate RHYTHM: regular rhythm HEART SOUNDS: S1 normal heart sound present and S2 normal heart sound present PERIPHERAL PULSES: Peripheral pulses 2+ throughout GI: COMMON NORMALS: Normal to inspection, nondistended, normoactive bowel sounds present, Soft to palpation, non-tender and no masses PALPATION: Yes Soft to palpation : COMMON NORMALS: Yes no CVA tenderness BLADDER/KIDNEY EXAM: Yes no CVA tenderness Back/Pelvis: COMMON NORMALS: no CVA tenderness Extremity: COMMON NORMALS: normal to inspection Neuro: COMMON NORMALS: patient oriented x3 and moves all extremities SENSORIUM/ORIENTATION: Yes alert Skin: GENERAL SKIN EXAM: dry skin Course Vital Signs: Vital signs: Vital Signs Temperature 97.4 F L 08/15/21 13:26 Pulse Rate 68 08/15/21 14:41 Respiratory Rate 17 08/15/21 14:41 Blood Pressure 189/106 08/15/21 14:41 Pulse Oximetry 100 08/15/21 14:41 MDM - Allergic Reaction Medical Decision Making Patient has allergy to cats and dogs and is currently staying at a friend's house that has both a cat and dog. She has a generalized pruritic rash itching watering eyes and had some wheezing last night. She is taken Benadryl that has not helped. Vitals are stable. Patient appears nontoxic and in no acute distress or pain. Rest of her exam is benign. Patient diagnosed with a pet allergy. Patient was given a dose of Solu-Medrol here in the ED and discharged home with a prescription for prednisone and an albuterol inhaler for any acute wheezing. She was told to continue taking [id number] antihistamines to help with symptoms as well. Return to ED precautions given. Patient understood agree with plan. Discharge Plan Discharge Patient Disposition: Home Clinical Impression: Pet allergy Condition: Stable Prescriptions: New albuterol sulfate 90 mcg/actuation HFA aerosol inhaler 2 inh inhalation Q6H PRN (Reason: shortness of breath or wheezing) Qty: 8.5 0RF Medrol (Freddie) 4 mg tablets,dose pack See Rx Instructions .ROUTE .COMPLEX Qty: 21 0RF Rx Instructions: orally per package directions No Action amlodipine-benazepril 5-20 mg capsule 5 - 20 cap PO DAILY 0RF ibuprofen 800 mg Tablet 800 mg PO Q6H PRN (Reason: Pain (Scale Score 4-6)) 0RF triamcinolone acetonide 0.1 % cream 1 applic TOPICAL BID 0RF levothyroxine 50 mcg tablet 50 mcg PO DAILY 0RF ropinirole 2 mg tablet 2 mg PO BEDTIME 0RF ferrous sulfate 325 mg (65 mg iron) tablet 325 mg PO DAILY 0RF omeprazole 20 mg capsule,delayed release(DR/EC) 20 mg PO DAILY 0RF fluticasone propionate 50 mcg/actuation spray,suspension 2 spray INTRANASAL DAILY 0RF Rx Instructions: 2sprays each nostril daily hydroxyzine pamoate 25 mg capsule 25 mg PO BEDTIME MDD 50mg PRN (Reason: Insomnia) 0RF citalopram 20 mg Tablet 20 mg PO DAILY Qty: 30 0RF Discharge Orders: Discharge ED (Routine); Ordered 08/15/21 Ordered By: Adam Casarez Discharge Diet: Regular Discharge Activity: Resume usual activity Patient Instructions: Allergies (ED) Activity Restrictions/Additional Instructions: Follow-up with medical provider as directed in the next 5 to 7 days reevaluation. Take medications as prescribed. You can start taking the prednisone tomorrow since she received a dose of steroid here in the ED. Use the albuterol inhaler as needed for any acute wheezing or shortness of breath. You can also take [id number] Benadryl or Zyrtec daily to help with symptoms. Return to the ER or your medical provider if condition worsens. Please read and understand discharge instructions. Thank you for choosing [facility] for your healthcare needs today. Please realize this is an emergency room and that we are providing you with a medical screening exam and this may not be complete and all inclusive of all the testing and or work up that you may need to determine your ailment or severity of your illness. It is very important that you follow up as instructed or that you return to the Emergency Department should you have concerns or if your condition changes or worsens in any way. Coding Level of Care Code ED Police Communications Dispatcher for Chg Fwd Exam Comprehensive
[2021-08-15 14:41] VITALS: BP 189/106; PULSE 68; RESP 17; O2SAT 100
== END 2021-08-15 14:35 | disposition home or self-care (01) ==
PROVIDERS: Emergency Provider Physician Assistant
DX: J30.81 Allergic rhinitis due to animal (cat) (dog) hair and dander (principal)
CPT/HCPCS: 96372; 99283; J2930

== ENCOUNTER → 2023-01-01 09:24 | Outpatient (BNVA) | payer MEDICAID, SELFPAY | PROVIDERS: Visit Provider Nurse Practitioner Family | DX: N89.8 Other specified noninflammatory disorders of vagina (principal) | CPT/HCPCS: 87491; 87591 ==

== ENCOUNTER → 2023-01-04 15:08 | Outpatient (BNVA) | payer MEDICAID, SELFPAY | PROVIDERS: Visit Provider Family Medicine | DX: S49.91XA Unspecified injury of right shoulder and upper arm, initial encounter (principal); S59.901A Unspecified injury of right elbow, initial encounter; W19.XXXA Unspecified fall, initial encounter | CPT/HCPCS: 73020; 73060; 73070 ==